=== PATIENT | male | born 1955 | race Caucasian/White ===

== ENCOUNTER 2022-04-01 15:32 | Emergency (ER) | payer MEDICAID ==
[~2022-04-01] VITALS: Ht 177.8 cm; Wt 90.9 kg
[2022-04-01 15:36] VITALS: BP 148/86
[2022-04-01] MEDS ORDERED: LIDOcaine 1% w/EPI 1:100,000 30ml vial (MDV) IJ ONE (16:00)
[2022-04-01] MEDS ORDERED: CEPH250T PO (17:46)
[2022-04-01] MEDS ORDERED: cephalexin 500mg capsule PO ONE (17:50)
== END 2022-04-01 18:10 | disposition home or self-care (01) ==
LOC: ER 15:34
DX: S91.312A Laceration without foreign body, left foot, initial encounter (principal); W18.39XA Other fall on same level, initial encounter; Y93.89 Activity, other specified; Y92.89 Other specified places as the place of occurrence of the external cause; Y99.8 Other external cause status
CPT/HCPCS: 12002; 73630; 99284; J7030; A6258; A6449